=== PATIENT | female | born 1970 | race Caucasian/White ===

== ENCOUNTER 2017-05-08 02:44 | Emergency (ER) | payer OTHER ==
[~2017-05-08] VITALS: Ht 170.2 cm; Wt 68.9 kg
[~2017-05-08 02:44] MED LIST: FLEXERIL10 MG PO; MOTRIN800 MG PO; NOHOMEMEDS; PERCOCET 5/31 TABLET PO
[2017-05-08] MEDS ORDERED: PREDNISONE20 MG PO (03:36)
[2017-05-08 03:50] VITALS: BP 131/82
== END 2017-05-08 03:51 | disposition home or self-care (01) ==
LOC: EME 02:44
DX: T78.3XXA Angioneurotic edema, initial encounter (principal)
CPT/HCPCS: 99281; 99283; J7512

== ENCOUNTER 2017-09-21 12:04 | Emergency (ER) | payer OTHER ==
[~2017-09-21] VITALS: Ht 167.6 cm; Wt 65.1 kg
[~2017-09-21 12:04] MED LIST changes: +PREDNISONE20 MG PO
[2017-09-21 12:07] VITALS: BP 137/85
== END 2017-09-21 12:32 | disposition left against medical advice (07) ==
LOC: EME 12:04
DX: R13.10 Dysphagia, unspecified (principal); R51 Headache; H92.02 Otalgia, left ear; R50.9 Fever, unspecified; Z53.21 Procedure and treatment not carried out due to patient leaving prior to being seen by health care provider